=== PATIENT | female | born 1980 | race Caucasian/White ===

== ENCOUNTER 2025-04-10 08:20 | Outpatient (REF) | payer OTHER, SELFPAY ==
[2025-04-10 13:32] LABS: MANUAL DIFF FLAG NO
[2025-04-10 13:47] LABS: Hematocrit 49.5 % (37.0-47.0); Hemoglobin 16.1 g/dl (12.0-16.0); Imm Gran Abs Auto 0.02 X10*3/uL (0.00-0.03); Imm Gran Pct Auto 0.3 % (0.0-0.4); Lymphocytes Absolute Auto 1.6 X10*3/uL (1.2-4.9); Mean Corpuscular HGB Conc 32.5 g/dl (31.0-35.0); Mean Corpuscular Hemoglobin 27.8 pg (27.0-33.0); Mean Corpuscular Volume 85.5 fL (80.0-98.0); NRBC Abs Auto 0.000 X10*3/uL (0.0-0.012); NRBC Pct Auto 0.0 /100WBC (0.0-0.2); Platelet Count 201 X10*3/uL (160-400); Red Blood Count 5.79 X10*6/uL (4.20-5.50); White Blood Count 7.4 X10*3/uL (4.8-10.8)
[2025-04-10 13:57] LABS: Hemoglobin A1C 79.4652 umol/L
[2025-04-10 13:58] LABS: Alanine Aminotransferase 12 U/L (0-31); Albumin Level 4.6 g/dL (3.5-5.0); Alkaline Phosphatase 22 U/L (39-117); Anion Gap 11 (12-20); Aspartate Amino Transferase 20 U/L (5-31); Blood Urea Nitrogen 15 mg/dL (9-16); Calcium 9.3 mg/dL (8.4-10.2); Carbon Dioxide 23 mmol/L (22-29); Chloride 109 mmol/L (96-108); Cholesterol 152 mg/dL (<200); Estimated Glomerular Filt Rate > 60; HDL Cholesterol 38 mg/dL (>40); Magnesium 2.2 mg/dL (1.6-2.6); Potassium 4.0 mmol/L (3.3-5.1); Sodium 139 mmol/L (135-145); Total Protein 7.1 g/dL (6.5-8.0); Triglycerides 111 mg/dL (<150)
[2025-04-10 14:24] LABS: Folate 10.4 ng/mL (> or = 4.0); Vitamin B12 1032 pg/mL (200-900)
[2025-04-10 14:46] LABS: Free T4 (Free Thyroxine) 1.02 ng/dL (0.71-1.85)
[2025-04-11 08:29] LABS: HBS Num1 7.70 mIU/mL (0-7.99); HBsAGNum1 0.42 S/CO (0.00-0.99); HIV Num 1 0.06 S/CO (0.00-0.99); Hepatitis B Surface Antigen Negative (Negative); ~HepC Num1 0.13 S/CO (0.00-0.79); ~Hepatitis B Surface Antibody NONREACTIVE (Nonreactive); ~Hepatitis C Antibody Nonreactive (Nonreactive)
[2025-04-11 08:33] LABS: Syphilis Screen Nonreactive (Nonreactive)
[2025-04-15 14:09] LABS: VITAMIN D (1,25 OH) D3 59 pg/mL; Vit D (1,25-Dihydroxy) Total 59 pg/mL (18-72); Vitamin D (1,25 OH) D2 <8 pg/mL
== END 2025-04-10 08:21 | disposition home or self-care (01) ==
LOC: HO.HKASLDS 08:20
PROVIDERS: PCP Student in an Organized Health Care Education/Training Program; Visit Provider Student in an Organized Health Care Education/Training Program
DX: N95.1 Menopausal and female climacteric states (principal); G47.00 Insomnia, unspecified; Z13.31 Encounter for screening for depression; Z13.39 Encounter for screening examination for other mental health and behavioral disorders; Z13.1 Encounter for screening for diabetes mellitus; Z13.6 Encounter for screening for cardiovascular disorders
CPT/HCPCS: 36415; 80053; 80061; 82607; 82652; 82746; 83036; 83735; 84439; 84443; 85025; 86706; 86780; 86803; 87340; 87389; 96127

== ENCOUNTER 2025-04-10 08:20 | Outpatient (AMB) | payer OTHER, SELFPAY ==
--- NOTE | 2025-04-10 08:22 | MHC.PC.OV ---
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 Business Functional Analyst Required: No Accompanied by: Self / Same As Patient Allergies No Known Allergies Allergy (Verified 04/10/25 08:26) Tobacco use date assessed: 04/10/25 Dental Screening Dental Screen Date: 04/10/25 Did you have a dental visit in the last 12 months?: Yes Did you have a dental problem in the last 6 months where you did not have access to dental care?: No Was dental information given to patient?: Patient has dentist HPI HPI Comments History of Present Illness Details History of Present Illness The patient is a 44-year-old female presenting to [facility] care with a new primary care provider and for management of several health concerns including perimenopausal symptoms, weight loss, and insomnia. Insomnia: The patient's biggest complaint is an inability to sleep through the night. She reports waking up at 3 or 4 a.m. nightly and being unable to fall back asleep, feeling like she is spinning mentally. She denies feeling hot or cold during these episodes and wakes up tired every day. She reports her father has a similar sleep pattern. The patient is not interested in taking medication for sleep and is seeking holistic approaches to improve her sleep. Weight Management: The patient has been taking semaglutide (2.5 mg/2.5 mL) for weight loss since April. She has lost 49 pounds to date but reports that her weight loss has stalled over the past month, with her weight fluctuating within the same three to four-pound range. She has remained on the same dose, which is a full insulin syringe, and has not experienced side effects such as nausea, vomiting, gassiness, or diarrhea, but does use MiraLAX for associated constipation. Perimenopausal Disorder: The patient is using a CombiPatch (estradiol/norethindrone acetate transdermal system, 0.05/0.25 mg per day) for perimenopausal symptoms, including what she describes as inner rage. She reports the patch helps but she had hoped for more significant improvement. This was the first treatment recommended by her APPETIZER PACKER, and she has a follow-up appointment in a couple of weeks to discuss it further. History of Polycystic Ovary Syndrome (PCOS): The patient was diagnosed with PCOS in 2008 and has a history of irregular menstrual cycles, which have never been a consistent 28 days. Her cycle lengths have recently varied between 25 and 32 days. Previously, after stopping control pills to conceive, she experienced amenorrhea for about a year. An ultrasound at a fertility clinic revealed over 20 cysts on each ovary, and she conceived after one cycle of fertility medication. History of Musculoskeletal Pain: The patient reports typical hip and back pain, which she attributes to life. She sees a chiropractor for this. She specifically notes that her right hip, right leg, and lower back pain are cyclical, worsening around her period and resolving after it ends. Onychomycosis (suspected): The patient reports having a gross nasty toenail on one foot and another affected nail on the other foot. She also notes that the skin on her feet is persistently dry despite using lotion. Surgical History: - Umbilical hernia repair, performed after the of her second child. Medications: - CombiPatch (estradiol/norethindrone acetate) 0.05 mg/0.25 mg per day transdermal system for perimenopausal symptoms. - Semaglutide injectable (1 mg/mL) for weight loss. - MiraLAX as needed for constipation. 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 - Substance Use: Denies smoking, alcohol use, and illicit drug use. - Weight Management: Reports a 49-pound weight loss since April using semaglutide. Family History: - Father has a history of waking in the middle of the night. - Denies any family history of colon cancer. Diagnostic Results: - Labs: Recent labs were drawn in January by her APPETIZER PACKER; results not discussed. - Mammogram: All mammograms in December, 2021, and 2019 were clean. - Pap smear: Is on a 3-year cycle and is due next year. Past Medical History - Polycystic Ovary Syndrome (PCOS), diagnosed in 2008 - History of infertility treated successfully with medication - Perimenopausal disorder - Insomnia - Onychomycosis, suspected - Chronic hip and back pain Health Maintenance - Patient is 44 years old and due for colon cancer screening. - Mammograms are up to date, with the most recent one in December being normal. - Pap smears are up to date; she is on a 3-year cycle and is due next year. - Patient sees her DIRECTOR INSURANCE annually. - Engaged in weight management, with a 49-pound weight loss. [facility] Medical History (Updated 04/10/25 @ 08:54 by Cesario Funk MD) History of PCOS Onychomycosis Insomnia Menopausal symptoms Surgical History (Updated 04/10/25 @ 08:28 by Fletcher Burns CMA) H/O umbilical hernia repair Family History (Updated 04/10/25 @ 08:30 by Fletcher Burns CMA) Mother FH: mental illness Pre-diabetes Hypertension High cholesterol Father FH: mental illness Aortic aneurysm Hypertension High cholesterol Macular degeneration Maternal Grandfather Pulmonary embolism Other Substance abuse Social History (Updated 04/10/25 @ 08:31 by Fletcher Burns CMA) Housing: House Alcohol intake: current Comment: Ocasionally Patient Tobacco Use Status: Never used Tobacco e-Cigarette/Vaping Use: Never Used service: No Current occupational status: employed 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 1. Little interest or pleasure in doing things: not at all 2. Feeling down, depressed, or hopeless: not at all 3. Trouble falling or staying asleep, or sleeping too much: nearly every day 4. Feeling tired or having little energy: more than half the days 5. Poor appetite or overeating: not at all 6. Feeling bad about yourself - or that you are a failure or have let yourself or your family down: not at all 7. Trouble concentrating on things, such as reading the newspaper or watching television: not at all 8. Moving or speaking so slowly that other people could have noticed. Or the opposite - being so fidgety or restless that you have been moving around a lot more than usual: not at all 9. Thoughts that you would be better off or of hurting yourself in some way: not at all Total score: 5 Depression Screening Interpretation: Negative Depression Screening Done: Yes 26203 - PHQ-9 Billing: Yes Source: Developed by Drs. Manish Madrid, Arnel Khan and colleagues, with an educational chelsie from [employer]. Thrive Questionnaire Date Thrive assessed: 04/09/25 I am a: Patient What is your living situation today?: I have a steady place to live Within the past 12 months, did the food you bought not last and you didn't have the money to get more?: Never true Within the past 12 months, did you worry whether your food would run out before you got money to buy more?: Never true Do you have trouble paying for medicines?: No Do you have trouble getting transportation to medical appointments?: No Do you have trouble paying your heating and electricity bill?: No Do you have trouble taking care of your child, family member or friend?: No Do you have trouble with day-to-day activities such as bathing, preparing meals, shopping, managing finances, etc.?: No Are you currently unemployed and looking for a job?: No Are you interested in more education?: No Please select the resources that you would like help with: None Currently or been in a relationship where the following occur: No concerns reported THRIVE Score: 0 AUDIT C Alcohol Use Questionnaire (AUDIT-C) 1. How often do you have a drink containing alcohol?: Monthly or less 2. How many drinks containing alcohol do you have on a typical day when you are drinking?: 1 or 2 3. How often do you have six or more drinks on one occasion?: Never Total Score: 1 JAYSON-7 AMB Questionnaire JAYSON-7 Date JAYSON - 7 assessed: 04/10/25 Feeling nervous, anxious, or on edge: 1 = Several days Not being able to stop or control worryin = Several days Worrying too much about different things: 1 = Several days Trouble relaxin = Several days Being so restless that it is hard to sit still: 1 = Several days Becoming easily annoyed or irritable: 1 = Several days Feeling afraid as if something awful might happen: 1 = Several days Total JAYSON-7 score (0-4 normal; 5-9 mild; 10-14 moderate; 15-21 severe): 7 Source: Developed by Salina Sharma Kurt Kroenke and colleagues, with an educational chelsie from [employer]. JAYSON-7 Assessment Billing JAYSON-7 Assessment Tool: JAYSON-7 Assessment 31497 Review of Systems Narrative Review of Systems - General: Reports waking up tired daily. - Neurological: Reports inability to maintain sleep, waking between 3-4 a.m. nightly. - Musculoskeletal: Reports hip and back pain. - Reports restlessness in her right hip and leg associated with her menstrual cycle. - Genitourinary/Endocrine: Reports irregular periods and perimenopausal symptoms such as mood changes. - Gastrointestinal: Reports slow bowel movements/constipation managed with MiraLAX. - Denies nausea, vomiting, or diarrhea. - Integumentary: Reports abnormal toenails and dry skin on her feet. - Respiratory: Denies snoring. 10-point ROS reviewed and negative except as noted in HPI Physical exam (Primary Care) Tobacco/Smoking Status: Tobacco use Status Patient Tobacco Use Status Never used Tobacco 04/10/25 08:31 PHQ-9: PHQ-9 Score PHQ-9: Total score 5 04/10/25 08:24 Depression Screening Interpretation: Negative Thrive Assessment: Date of Thrive Assessment Date Thrive assessed 04/09/25 04/10/25 08:24 Currently or been in a relationship where the following occur: No concerns reported Narrative Physical Exam General: Well-appearing, in no acute distress. Vital signs: Blood pressure and pulse are good, within normal limits. HEENT: Normocephalic, atraumatic. PERRLA, EOMI. Conjunctiva clear, sclera anicteric. Oropharynx clear, mucous membranes moist. TMs intact bilaterally. Neck: Supple, no lymphadenopathy, no thyromegaly, no JVD or carotid bruits. Cardiovascular: RRR, normal S1/S2, no murmurs, rubs, or gallops. Peripheral pulses 2+ and symmetric. No edema. Respiratory: Lungs clear to auscultation bilaterally, no wheezes, rales, or rhonchi. Normal effort. Abdomen: Soft, non-tender, non-distended. Normoactive bowel sounds. No hepatosplenomegaly, no masses. MSK: Full range of motion, no joint swelling or deformity. Normal gait. Right hip pain noted, associated with menstrual cycle. Skin: Warm, dry, intact. No rashes, lesions, or pallor. Dry skin noted on feet. Neuro: Alert and oriented x3. Cranial nerves II-XII intact. Strength 5/5 throughout. Sensation intact. Reflexes 2+ symmetric. Normal coordination and gait. Psych: Appropriate mood and affect. Normal judgment and insight. Reports difficulty sleeping through the night, waking up around 3-4 AM. Coding Level of Care Code New Pt Level 4 (45775) Diagnoses Menopausal symptoms N95.1 Insomnia G47.00 History of PCOS Z87.42 Onychomycosis B35.1 Additional Codes JAYSON-7 Assessment Billing - JAYSON-7 Assessment Tool: JAYSON-7 Assessment 63647 ([id number]) PHQ-9 - 81574 - PHQ-9 Billing: Yes ([id number]) Assessment & Plan Assessment & Plan (1) Menopausal symptoms: Code(s): N95.1 - Menopausal and female climacteric states Category: Medical (2) Insomnia: Code(s): G47.00 - Insomnia, unspecified Category: Medical (3) History of PCOS: Code(s): Z87.42 - Personal history of other diseases of the female genital tract Category: Medical (4) Onychomycosis: Code(s): B35.1 - Tinea unguium Category: Medical Plan Consent The patient verbally agreed to undergo baseline lab work, a home sleep study, and a Cologuard test for colon cancer screening. She also agreed to a referral to a operational assistant for evaluation of her foot and toenail condition. Patient was informed and verbally consented to the use of an ambient scribe for clinic note documentation during this visit. Plan 1. Insomnia - To rule out an organic cause for sleep disturbance, a home sleep study will be ordered. - Will investigate specialists for cognitive behavioral therapy for insomnia (CBT-I) and consider a referral, as the patient prefers a non-pharmacological approach. 2. Health Maintenance / New Patient Visit - Baseline labs will be ordered. - For colon cancer screening, the patient will complete a Cologuard test. - Plan to follow up in two weeks to review all test results. 3. Weight Management - The patient has plateaued in her weight loss with semaglutide. - Advised the patient to discuss increasing her semaglutide dose with the prescribing provider, as she is tolerating it well without significant side effects. 4. Perimenopausal Disorder - The patient is currently using a CombiPatch for symptoms. - She has a follow-up appointment scheduled with her APPETIZER PACKER provider in a few weeks to re-evaluate her symptoms and treatment. 5. Onychomycosis, Suspected - Will refer the patient to a operational assistant for further evaluation, including a possible biopsy, to confirm the diagnosis. - Discussed that treatment may involve oral terbinafine, which would require baseline and interval monitoring of liver function tests. Discussion Notes I met with this pleasant 44-year-old female for a new patient visit. We discussed her main complaint of insomnia, characterized by rtwfwv-cp-edz-night awakenings, and I recommended a home sleep study to rule out an organic cause like sleep apnea. Given her preference against medications, I informed her about cognitive behavioral therapy for insomnia (CBT-I) as a potential future treatment. We reviewed her success with semaglutide for weight loss and the recent plateau; I advised her to speak with the prescribing provider about potentially increasing the dose since she is tolerating it well. Regarding her foot concerns, I recommended a referral to a operational assistant for evaluation of suspected onychomycosis, and we briefly discussed oral treatment options like terbinafine and the associated need for liver function monitoring. For health maintenance, we reviewed that she is up to date on her mammogram and Pap smear. I ordered baseline lab work and a Cologuard test for colon cancer screening, as she is now of screening age. We arranged for a follow-up visit in two weeks to review all results. Patient Instructions - Complete the baseline blood work that was ordered. - Complete the Cologuard test kit for colon cancer screening. - A home sleep study will be ordered to check for sleep problems. Please complete this test. - We will refer you to a foot and ankle specialist (operational assistant) to look at your toenail and dry skin concerns. - Continue taking your CombiPatch and semaglutide as prescribed. - Since your weight loss has slowed, speak with the doctor who prescribes your semaglutide about possibly increasing the dose. - Continue with your scheduled APPETIZER PACKER follow-up in a few weeks to discuss your perimenopause symptoms. - Schedule a follow-up appointment in two weeks to discuss your test results. Medical Decision Making The patient is a 44-year-old female presenting to [facility] primary care. Her primary complaint of hjjuci-kx-mza-night awakening warrants investigation for an underlying sleep disorder; a home sleep study is ordered to rule out common etiologies like obstructive sleep apnea. Given her preference against pharmacotherapy, cognitive behavioral therapy for insomnia (CBT-I) represents the most appropriate long-term management strategy, and a referral will be considered pending sleep study results. The patient has achieved significant weight loss with semaglutide, but the recent plateau suggests that dose optimization may be required to maintain efficacy. I advised her to consult her prescribing provider, as she is tolerating the current dose well. The patient's foot and toenail complaints are suspicious for onychomycosis, for which a podiatry referral is the most appropriate next step for definitive diagnosis and specialized management. Standard health maintenance was addressed, including ordering baseline labs and an age-appropriate colon cancer screening with Cologuard, which the patient agreed to. A follow-up visit in two weeks will allow for a comprehensive review of diagnostic results and further refinement of the care plan. Total Time Statement 30 min Total time spent caring for the patient today includes pre-visit chart review, documentation, review of laboratory and diagnostic imaging results, medication reconciliation, medically necessary evaluation, counseling on diagnoses, care coordination, ordering appropriate tests and medications, review of tests performed by other providers, reporting test results to the patient, and communication with other healthcare providers. Orders: Orders Complete Blood Count Auto Diff Today Z13.9 - Encounter for screening, unspecified Comprehensive Met. Panel Today Z13.9 - Encounter for screening, unspecified HIV Ab/Ag Today Z13.9 - Encounter for screening, unspecified UA CC w/rflx Micro + Cult Today Z13.9 - Encounter for screening, unspecified Hemoglobin A1c Today Z13.9 - Encounter for screening, unspecified Magnesium Today Z13.9 - Encounter for screening, unspecified RT home sleep study Today G47.00 - Insomnia, unspecified Hepatitis B Surface Antigen Today Z13.9 - Encounter for screening, unspecified Syphilis Screen Today Z13.9 - Encounter for screening, unspecified Hepatitis C Antibody Today Z13.9 - Encounter for screening, unspecified TSH reflex Free T4 Today Z13.9 - Encounter for screening, unspecified CT NG by PCR Urine Today Z13.9 - Encounter for screening, unspecified Lipid Panel Today Z13.9 - Encounter for screening, unspecified Vitamin B12 and Folate Today Z13.9 - Encounter for screening, unspecified Vitamin D 1,25 dihydroxy Today Z13.9 - Encounter for screening, unspecified Hepatitis B Surface Antibody Today Z13.9 - Encounter for screening, unspecified Referrals Cologuard Test Z12.11 - Encounter for screening for malignant neoplasm of colon, Z12.12 - Encounter for screening for malignant neoplasm of rectum Podiatry Referral B35.1 - Tinea unguium
[2025-04-10 08:31] VITALS: BP 99/62; PULSE 91; RESP 18; TEMP 36.8; O2SAT 99; BMI 25.8
== END 2025-04-10 08:53 | disposition home or self-care (01) ==
LOC: HO.HMCFMS 08:21
PROVIDERS: PCP Student in an Organized Health Care Education/Training Program; Visit Provider Student in an Organized Health Care Education/Training Program
DX: N95.1 Menopausal and female climacteric states (principal); G47.00 Insomnia, unspecified; Z87.42 Personal history of other diseases of the female genital tract; B35.1 Tinea unguium

== ENCOUNTER 2025-05-05 15:44 | Outpatient (AMB) | payer OTHER, SELFPAY ==
--- NOTE | 2025-05-05 15:53 | A.OFFPC_ITS ---
Vital Signs 05/05/25 16:01 Height 5 ft 5 in Weight 156 lb 4 oz BMI 26.0 BP 105/66 Blood Pressure Location Lt brachial Position Sitting Respiration 18 Pulse 73 Pulse Source Pulse Oximeter Temp 98.2 F Temp Source Oral Pulse Oximetry (%) 97 Oxygen Delivery Method Room Air Intake Visit Reasons: Follow up 2 weeks Intake Note: Patient present for follow up labs. Material Chaser Required: No Accompanied by: Self / Same As Patient Allergies No Known Allergies Allergy (Verified 05/05/25 16:01) Medication List - Last Reconciled 05/05/25 by Cesario Funk MD estradiol-norethindrone acet 0.05-0.25 mg/24 hr (CombiPatch) 1 patch topical 2XW semaglutide 2 mg subcut QWEEK Tobacco use date assessed: 04/10/25 Dental Screening Dental Screen Date: 04/10/25 HPI HPI Comments History of Present Illness Details History of Present Illness The patient is a 44 year old female presenting with review of laboratory results. Subclinical hyperthyroidism: The patient has a lab finding suggestive of subclinical hyperthyroidism, but denies associated symptoms such as feeling sweaty, diarrhea, or tremulousness. Hair loss: The patient has noticed hair loss, which she attributes to her use of a semaglutide for weight loss. Preventative care: Cologuard screening: The patient reports a recent Cologuard test was negative. Hypercholesterolemia: The patient is happy with her recent lipid panel results, noting a family history of high cholesterol. Medications: - Semaglutide for weight loss. Social History: - Nutrition: The patient reports drinkin g a protein shake daily. Family History: - Hypercholesterolemia Diagnostic Results: - Cologuard: Negative. - Complete Blood Count (CBC): White bloo d cells, MCV, and platelets are normal. - RBC, Hemoglobin, Hematocrit: Slightly high, attributed to dehydration. - Comprehensive Metabolic Panel (CMP): S odium, potassium, and renal function are normal. - Glucose: Random glucose is normal. - Hemoglobin A1c: 4.8%. - Calcium and Magnesium: Normal. - Liver Function Tests and Protein: Norm al. - Lipid Panel (non-fasting): Total marta sterol 152 mg/dL, Triglycerides 111 mg/dL, LDL 92 mg/dL, HDL 38 mg/dL. - Vitamin B12: 1032 pg/mL. - Vitamin D: Normal. - Thyroid function: Suggests subclinical hyperthyroidism. - Syphilis, Hepatitis B, Hepatitis C, HI V: Negative. Past Medical History Health Maintenance - The patient's Cologuard was negative. - Screening for syphilis, hepatitis B, h epatitis C, and HIV were all negative. - A review of lab results showed a well- controlled lipid profile, especially considering the non-fasting state and family history of high cholesterol. - Hemoglobin A1c was 4.8%, indicating no risk for prediabetes or diabetes. - The patient is taking semaglutide for weight loss. [facility] Medical History (Updated 05/05/25 @ 19:00 by Cesario Funk MD) Family history of familial hypercholesterolemia Drug-induced weight loss Hair loss Hypervitaminosis Subclinical hyperthyroidism History of PCOS Onychomycosis Insomnia Menopausal symptoms Surgical History H/O umbilical hernia repair Family History Mother FH: mental illness Pre-diabetes Hypertension High cholesterol Father FH: mental illness Aortic aneurysm Hypertension High cholesterol Macular degeneration Maternal Grandfather Pulmonary embolism Other Substance abuse Social History (Updated 05/05/25 @ 16:01 by Fletcher Burns CMA) Housing: House Alcohol intake: current Comment: Ocasionally Patient Tobacco Use Status: Never used Tobacco e-Cigarette/Vaping Use: Never Used service: No Current occupational status: employed 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 1. Little interest or pleasure in doing things: not at all 2. Feeling down, depressed, or hopeless: not at all 3. Trouble falling or staying asleep, or sleeping too much: nearly every day 4. Feeling tired or having little energy: more than half the days 5. Poor appetite or overeating: not at all 6. Feeling bad about yourself - or that you are a failure or have let yourself or your family down: not at all 7. Trouble concentrating on things, such as reading the newspaper or watching television: not at all 8. Moving or speaking so slowly that other people could have noticed. Or the opposite - being so fidgety or restless that you have been moving around a lot more than usual: not at all 9. Thoughts that you would be better off or of hurting yourself in some w ay: not at all Total score: 5 Depression Screening Interpretation: Negative Depression Screening Done: Yes 11813 - PHQ-9 Billing: Yes Source: Developed by Drs. Manish Madrid, Salina Georges, Arnel Matos and colleagues, with an educational chelsie from [employer]. Thrive Questionnaire Date Thrive assessed: 04/09/25 I am a: Patient What is your living situation today?: I have a steady place to live Within the past 12 months, did the food you bought not last and you didn't have the money to get more?: Never true Within the past 12 months, did you worry whether your food would run out before you got money to buy more?: Never true Do you have trouble paying for medicines?: No Do you have trouble getting transportation to medical appointments?: No Do you have trouble paying your heating and electricity bill?: No Do you have trouble taking care of your child, family member or friend?: No Do you have trouble with day-to-day activities such as bathing, preparing meals, shopping, managing finances, etc.?: No Are you currently unemployed and looking for a job?: No Are you interested in more education?: No Please select the resources that you would like help with: None Currently or been in a relationship where the following occur: No concerns reported THRIVE Score: 0 AUDIT C Alcohol Use Questionnaire (AUDIT-C) 1. How often do you have a drink containing alcohol?: Monthly or less 2. How many drinks containing alcohol do you have on a typical day when you are drinking?: 1 or 2 3. How often do you have six or more drinks on one occasion?: Never Total Score: 1 JAYSON-7 AMB Questionnaire JAYSON-7 Date JAYSON - 7 assessed: 04/10/25 Feeling nervous, anxious, or on edge: 1 = Several days Not being able to stop or control worryin = Several days Worrying too much about different things: 1 = Several days Trouble relaxin = Several days Being so restless that it is hard to sit still: 1 = Several days Becoming easily annoyed or irritable: 1 = Several days Feeling afraid as if something awful might happen: 1 = Several days Total JAYSON-7 score (0-4 normal; 5-9 mild; 10-14 moderate; 15-21 severe): 7 Source: Developed by Drs. Manish Madrid, Salina Georges, Arnel Matos and colleagues, with an educational chelsie from [employer]. JAYSON-7 Assessment Billing JAYSON-7 Assessment Tool: JAYSON-7 Assessment 59863 Review of Systems Narrative Review of Systems - Constitutional: Reports feeling good. - Endocrine: Denies feeling sweaty. - Gastrointestinal: Denies diarrhea. - Integumentary: Reports hair loss, but not in excessive amounts. - Neurological: Denies tremulousness. 10-point ROS reviewed and negative except as noted in HPI Physical exam (Primary Care) Vital Signs: Last Vital Signs Temp 98.2 F 05/05/25 16:01 Pulse 73 05/05/25 16:01 Resp 18 05/05/25 16:01 BP 105/66 05/05/25 16:01 Pulse Ox 97 05/05/25 16:01 Oxygen Delivery Method Room Air 05/05/25 16:01 BMI result Body Mass Index 26.0 Tobacco/Smoking Status: Tobacco use Status Tobacco use date assessed 04/10/25 05/05/25 15:55 Patient Tobacco Use Status Never used Tobacco 05/05/25 16:01 e-Cigarette/Vaping Use Never Used 05/05/25 16:01 PHQ-9: PHQ-9 Score PHQ-9: Total score 5 05/05/25 16:21 Depression Screening Interpretation: Negative Thrive Assessment: Date of Thrive Assessment Date Thrive assessed 04/09/25 05/05/25 15:55 Currently or been in a relationship where the following occur: No concerns reported Narrative Physical Exam General: Well-appearing, in no acute distress. Vital signs: Within normal limits. HEENT: Normocephalic, atraumatic. PERRLA, EOMI. Conjunctiva clear, sclera anicteric. Oropharynx clear, mucous membranes moist. TMs intact bilaterally. Neck: Supple, no lymphadenopathy, no thyromegaly, no JVD or carotid bruits. Cardiovascular: RRR, normal S1/S2, no murmurs, rubs, or gallops. Peripheral pulses 2+ and symmetric. No edema. Respiratory: Lungs clear to auscultation bilaterally, no wheezes, rales, or rhonchi. Normal effort. Abdomen: Soft, non-tender, non-distended. Normoactive bowel sounds. No hepatosplenomegaly, no masses. MSK: Full range of motion, no joint swelling or deformity. Normal gait. Skin: Warm, dry, intact. No rashes, lesions, or pallor. Neuro: Alert and oriented x3. Cranial nerves II-XII intact. Strength 5/5 throughout. Sensation intact. Reflexes 2+ symmetric. Normal coordination and g ait. Psych: Appropriate mood and affect. Normal judgment and insight. Coding Level of Care Code Est Pt Level 3 (82977) Add On Problem Visit Only Diagnoses Subclinical hyperthyroidism E05.90 Hypervitaminosis E67.8 Hair loss L65.9 Drug-induced weight loss R63.4; T50.905A Family history of familial hypercholesterolemia Z83.42 Additional Codes JAYSON-7 Assessment Billing - JAYSON-7 Assessment Tool: JAYSON-7 Assessment 27298 ([id number]) PHQ-9 - 71762 - PHQ-9 Billing: Yes ([id number]) Assessment & Plan Assessment & Plan (1) Subclinical hyperthyroidism: Code(s): E05.90 - Thyrotoxicosis, unspecified without thyrotoxic crisis or storm Category: Medical (2) Hypervitaminosis: Code(s): E67.8 - Other specified hyperalimentation Category: Medical (3) Hair loss: Code(s): L65.9 - Nonscarring hair loss, unspecified Category: Medical (4) Drug-induced weight loss: Code(s): R63.4 - Abnormal weight loss; T50.905A - Adverse effect of unspecified drugs, medicaments and biological substances, initial encounter Category: Medical (5) Family history of familial hypercholesterolemia: Code(s): Z83.42 - Family history of familial hypercholesterolemia Category: Medical Plan Consent Patient was informed and verbally consented to the use of an ambient scribe for clinic note documentation during this visit. Plan 1. Subclinical Hyperthyroidism - The patient is asymptomatic for hyperthyroidism. - Repeat labs will be performed in approximately two months to monitor thyroid function. - The patient denies taking any tiem-lws-qxmbfhh supplements like Biotin that could interfere with the assay. 2. Hair Loss - The patient's reported hair loss is noted and is likely a side effect of semaglutide-induced weight loss. - A plan to monitor the hair loss was established. 3. Routine Lab Follow Up - Plan to repeat labs in approximately two months to re-evaluate thyroid function. - The patient is scheduled for a follow-up visit in two months to review the repeat lab results. Discussion Notes I reviewed the patient's comprehensive lab results with her. We discussed that her Cologuard was negative and her CBC, metabolic panel, and glucose markers were all excellent, with an A1c of 4.8%. I explained that while her RBC, hemoglobin and hematocrit were slightly elevated, this was likely due to dehydration and not a cause for concern. We discussed her lipid panel, which was very good, especially since it was a non-fasting sample. Her screenings for syphilis, hepatitis B, hepatitis C, and HIV were all negative. I noted a finding of subclinical hyperthyroidism but confirmed she was asymptomatic. I informed her that we would monitor this by repeating her labs in about two months, as it is standard to repeat any abnormal lab results for confirmation. We also discussed that her hair loss is a known side effect of weight loss from semaglutide. I reassured her that her overall results were excellent. I advised her to follow up in two months for the repeat labs and review. Patient Instructions - Your lab results are very good overall. - Your thyroid test was slightly high, but you do not have any symptoms. We will recheck this with another blood test in about two months to see if there are any changes. - Please return to the clinic in about two months for a follow-up visit and to have your blood drawn again. - Continue your current medications and diet, as your numbers look great. Medical Decision Making The patient, a 44-year-old female, presented for a review of recent lab work. Her labs were overwhelmingly reassuring, including a negative Cologuard, normal CBC, metabolic panel, and an excellent hemoglobin A1c of 4.8%. Slightly elevated RBC/Hgb/Hct were attributed to dehydration given the clinical context and lack of other concerning findings. Her lipid panel was favorable, especially impressive for a non-fasting sample and a known family history of hypercholesterolemia. The only notable abnormality was a lab finding suggestive of subclinical hyperthyroidism. The patient is clinically euthyroid, denying any symptoms such as sweating, diarrhea, or tremors. Her reported hair loss is more likely attributed to semaglutide use and associated weight loss rather than a thyroid etiology. Given that abnormal labs warrant a repeat test for confirmation and the lack of clinical correlation, the plan is to monitor and repeat thyroid labs in approximately two months. No acute intervention is required at this time. Total Time Statement 20 min Total time spent caring for the patient today includes pre-visit chart review, documentation, review of laboratory and diagnostic imaging results, medication reconciliation, medically necessary evaluation, counseling on diagnoses, care coordination, ordering appropriate tests and medications, review of tests performed by other providers, reporting test results to the patient, and communication with other healthcare providers.
[2025-05-05 16:01] VITALS: BP 105/66; PULSE 73; RESP 18; TEMP 36.8; O2SAT 97; BMI 26.0
--- OUTSIDE RECORDS SUMMARY | 2025-05-05 20:28 | XMS_ITS | Clinical Summary ---
Author Organization [facility] Address [address] [place] [id number] Phone Care Team Providers Care Logger All Round Name Role Phone Pcp, Unknown Primary Care Provider Unavailabl e Allergies No known active allergies Medications semaglutide (OZEMPIC) 0.25 mg or 0.5 mg (2 mg/3 mL) subcutaneous injection pen Inject 2.5 mg under the skin every 7 days. Active famotidine (PEPCID) 20 MG tablet Take 20 mg by mouth 2 (two) times a day. Active bismuth subsalicylate 262 mg Chew Take 524 mg by mouth every hour as needed. Active Active Problems No known active problems Social History Tobacco Use Types Packs/Day Years Used Date Smoking Tobacco: Never Assessed Education Answer Date Recorded Are you interested in more education? Not on lilliana e 10/22/2024 Are you concerned about learning? Not on file 10/22/2024 No 10/22/2024 No 10/22/2024 Digital Access Answer Date Recorded No 10/22/2024 No 10/22/2024 Reliable internet access at home? Not on file 10/22/2024 Device with a working camera? Not on file Comments Unknown Sex and Gender Information Value Date Recorded Sex Assigned at Female 10/22/2024 1:15 PM EDT Legal Sex Female 1:09 PM EDT Gender Identity Female 10/22/2024 1:15 PM EDT Sexual Orientation Straight 10/22/2024 1: 15 PM EDT Last Filed Vital Signs Vital Sign Reading Time Taken Comments Blood Pressure 121/80 10/22/2024 1:27 PM EDT Pulse 74 10/22/2024 1:27 PM EDT Temperature 36.8 C (98.3 F) 10/22/2024 1:27 PM EDT Respiratory Rate 18 10/22/2024 1:27 PM EDT Oxygen Saturation 97% 10/22/2024 1:27 PM EDT Inhaled Oxygen Concentration - - Weight - - Height - - Body Mass Index - - Plan of Treatment Health Maintenance Due Date Last Done Comments LIPID PANEL 1979 DEPRESSION SCREENING 1991 SMOKING Hx and SMOKELESS TOBACCO SCREENING 11/28/1992 HEPATITIS C SCREENING 11/28/1997 HIV ONE-TIME SCREENING (18-65 YEARS) 11/28/1997 PAP SMEAR 11/28/2000 MAMMOGRAM 2019 Adult Td,Tdap Booster 06/15/2024 06/15/2014 COLOGUARD 11/28/2024 COLONOSCOPY 11/28/2024 COLORECTAL CANCER SCREENING 11/28/2024 FIT TEST 11/28/2024 FOBT 11/28/2024 SIGMOIDOSCOPY 11/28/2024 VIRTUAL COLONOSCOPY 11/28/2024 INFLUENZA VACCINE (#1) 2024 , 02/07/2023, 02/09/2021, Additional history exists COVID-19 VACCINE ( season) 2025 04/27/2021, 08/31/2020, 08/10/2020 HEPATITIS A VACCINES Aged Out No long er eligible based on patient's age to complete this topic HIB VACCINES Aged Out No longer eligi ble based on patient's age to complete this topic MENINGOCOCCAL VACCINES (ACWY) Aged Out No longer eligible based on patient's age to complete this topic MENINGOCOCCAL VACCINES (B) Aged Out N o longer eligible based on patient's age to complete this topic PNEUMOCOCCAL VACCINES (0-49 years) Aged Out No longer eligible based on patient's age to complete this topic Medical Devices Not on file Insurance [facility] HMO [id number] [place], [place] [id number] [place] [address] [facility] HMO Care Teams Logger All Round Relationship Specialty Start Date End Date Pcp, Unknown PCP - General 10/22/24 Additional Source Comments The information contained in this document represents components of the legal health record. It is not the complete legal health record.[facility]
== END 2025-05-05 16:24 | disposition home or self-care (01) ==
LOC: HO.HMCFMS 15:45
PROVIDERS: PCP Student in an Organized Health Care Education/Training Program; Visit Provider Student in an Organized Health Care Education/Training Program
DX: E05.90 Thyrotoxicosis, unspecified without thyrotoxic crisis or storm (principal); E67.8 Other specified hyperalimentation; L65.9 Nonscarring hair loss, unspecified; R63.4 Abnormal weight loss; T50.905A Adverse effect of unspecified drugs, medicaments and biological substances, initial encounter; Z83.42 Family history of familial hypercholesterolemia

== ENCOUNTER → 2025-05-05 15:44 | Outpatient (BNVA) | payer OTHER, SELFPAY | PROVIDERS: PCP Student in an Organized Health Care Education/Training Program; Visit Provider Student in an Organized Health Care Education/Training Program | DX: E05.90 Thyrotoxicosis, unspecified without thyrotoxic crisis or storm (principal); E67.8 Other specified hyperalimentation; L65.9 Nonscarring hair loss, unspecified; R63.4 Abnormal weight loss; T50.905D Adverse effect of unspecified drugs, medicaments and biological substances, subsequent encounter; Z83.42 Family history of familial hypercholesterolemia | CPT/HCPCS: 96127 ==

== ENCOUNTER 2025-05-23 08:54 | Outpatient (AMB) | payer OTHER, SELFPAY ==
[2025-05-23 09:02] VITALS: BMI 26.0
--- NOTE | 2025-05-23 09:02 | MHC.OFFVIS ---
Vital Signs 05/23/25 09:02 Height 5 ft 5 in Weight 156 lb BMI 26.0 Intake Visit Reasons: Tinea Unguium Intake Note: Miranda is a 44 year old female who presents today as a new patient for an evaluation of her tinea unguium. Patient reports the fungus is located bilaterally on her toes and this has been going on for about 2 years. She has tried OTC fungal treatment and has found no relief for her symptoms Allergies No Known Allergies Allergy (Verified 05/23/25 09:04) HPI Comments Details: The patient is a 44 year old female with a PMH as seen below presenting with concerns regarding changes to the appearance of her toenails and skin. She states she has noticed discoloration to her toenails, worse to B/L hallucal nails and the right 3rd toenail. She also reports chronically dry skin on her feet, cracking between the toes, and itching that worsens when the condition is severe. The patient has previously tried xwhg-eft-ecplcpq creams without improvement. She notes her had a similar condition that resolved with oral medication. She denies any drainage from the affected areas. She is scheduled for lab work in the first week of June for this condition. The patient denies any known medication allergies.She denies any other pedal concerns. [facility] Medical History (Updated 05/23/25 @ 09:10 by Carrol Graves DPM) Tinea pedis Tinea unguium Xerosis of skin Family history of familial hypercholesterolemia Drug-induced weight loss Hair loss Hypervitaminosis Subclinical hyperthyroidism History of PCOS Onychomycosis Insomnia Menopausal symptoms Surgical History H/O umbilical hernia repair Family History Mother FH: mental illness Pre-diabetes Hypertension High cholesterol Father FH: mental illness Aortic aneurysm Hypertension High cholesterol Macular degeneration Maternal Grandfather Pulmonary embolism Other Substance abuse Social History (Updated 05/05/25 @ 16:01 by Fletcher Burns CMA) Housing: House Alcohol intake: current Comment: Ocasionally Patient Tobacco Use Status: Never used Tobacco e-Cigarette/Vaping Use: Never Used service: No Current occupational status: employed 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 All systems reviewed & are unremarkable except as noted in HPI and below Physical Exam Vital Signs: BMI result Body Mass Index 26.0 Extrem Other: Bilateral lower extremity focused physical exam: Derm: Discoloration noted to bilateral hallucal toenails and right 3rd toenail with minimal subungual debris. No open lesions abrasions or wounds noted. No hyperkeratotic or macerated areas noted. No discoloration noted. No clinical signs of infection. Vasc: DP/PT pulses palpable. Capillary refill time less than 3 seconds. Temperature gradient warm to warm. No varicosities noted. No edema noted. Pedal hair absent. Neuro: Protective sensation is grossly intact. MSK: No pain on palpation to the forefoot, hindfoot, and ankles. No crepitus or fluctuance noted. No other gross abnormalities noted. Nonantalgic gait unassisted noted. Results Reviewed Results Reviewed: Laboratory Tests 04/10/25 09:05 WBC 7.4 Random Glucose 77 Estimat Average Glucose 91 Hemoglobin A1c % 4.8 AST 20 ALT 12 Assessment & Plan Assessment & Plan (1) Xerosis of skin: Code(s): L85.3 - Xerosis cutis Category: Medical (2) Tinea unguium: Code(s): B35.1 - Tinea unguium Category: Medical (3) Tinea pedis: Code(s): B35.3 - Tinea pedis Category: Medical Plan Patient was informed and verbally consented to the use of an ambient scribe for clinic note documentation during this visit. I discussed the treatment options for the patient's onychomycosis and tinea pedis, comparing topical therapy, which takes about a year, with oral medication, which typically shows results in three to four months. The patient elected to proceed with oral terbinafine. I explained the risk of elevated liver function levels associated with terbinafine and the need for periodic lab monitoring. As her recent labs were normal, we are proceeding with the prescription. I also prescribed ammonium lactate cream for the dryness and itching. We will use her upcoming lab draw in June to monitor her liver function and will plan for a follow-up in one month, coordinating with her other appointments if possible. - A prescription for oral terbinafine was sent to the pharmacy to treat onychomycosis. - A prescription for topical ammonium lactate cream was sent to address tinea pedis and associated skin dryness. - An order for lab work was placed to monitor liver function while on terbinafine. - The patient will utilize her upcoming lab appointment in the first week of June, scheduled with Dr. Funk, to complete the required liver function tests. Advised patient to keep feet and shoes clean. RTC in 1 month. Orders: Orders Comprehensive Met. Panel 05/23/25 B35.1 - Tinea unguium, B35.3 - Tinea pedis Complete Blood Count Auto Diff 05/23/25 B35.1 - Tinea unguium, B35.3 - Tinea pedis Medications: New terbinafine HCl 250 mg PO DAILY 30 tabs 0RF B35.1 - Tinea unguium, B35.3 - Tinea pedis ammonium lactate 12% 1 appl topical DAILY 385 grams 1RF L85.3 - Xerosis cutis Coding Level of Care Code New Pt Level 4 (25418) Diagnoses Xerosis of skin L85.3 Tinea unguium B35.1 Tinea pedis B35.3 Time Spent (min) 47
--- OUTSIDE RECORDS SUMMARY | 2025-05-23 10:57 | XMS_ITS | Clinical Summary ---
Author Organization [facility] Address [address] [place] [phone] Phone Care Team Providers Care Qa Automation Engineer Name Role Phone Pcp, Unknown Primary Care [...] topic Medical Devices Not on file Insurance [facility] HMO [id number] [place], [place] [id number] [place] [address] [facility] HMO [facility] HMO Care Teams Qa Automation Engineer Relationship Specialty Start Date End Date Pcp, Unknown PCP - General 10/22/24 Additional Source Comments The information contained in this document represents components of the legal health record. It is not the complete legal health record.[facility]
== END 2025-05-23 09:10 | disposition home or self-care (01) ==
LOC: HO.HPODS 08:55
PROVIDERS: PCP Student in an Organized Health Care Education/Training Program; Visit Provider Student in an Organized Health Care Education/Training Program
DX: L85.3 Xerosis cutis (principal); B35.1 Tinea unguium; B35.3 Tinea pedis
CPT/HCPCS: 99204